=== PATIENT | male | born 1965 | race Two or more races ===

== ENCOUNTER 2018-06-27 13:06 | Emergency (ER) | payer SELFPAY ==
[~2018-06-27] VITALS: Ht 175.3 cm; Wt 69.0 kg
[2018-06-27 20:31] LABS: CLARITY URINE CLEAR (CLEAR); COLOR URINE ORANGE (YELLOW); KETONES URINE 1+ (NEGATIVE); LEUKOCYTE ESTERASE URINE TRACE (NEGATIVE); NITRITE URINE POSITIVE (NEGATIVE); OCCULT BLOOD URINE NEGATIVE (NEGATIVE); PROTEIN URINE 2+ (NEGATIVE)
[2018-06-27] MEDS ORDERED: AMOXICILLIN 500 MG CAPSULE PO ONE (20:45)
[2018-06-27 21:44] LABS: BASOPHILS % 0.1 % (0.0-2.0); CHLORIDE 99 mEq/L (98-107); HEMATOCRIT. 40.1 % (42.0-52.0); HEMOGLOBIN. 13.2 g/dL (14.0-18.0); LYMPHOCYTES % 7.2 % (20.0-50.0); MEAN CORPUSCULAR HEMOGLOBIN 31.5 pg (28.0-32.0); MEAN CORPUSCULAR VOLUME 95.5 fL (80.0-94.0); MEAN PLATELET VOLUME 10.9 fl (7.4-10.4); MONOCYTES % 9.9 % (2.0-8.0); NEUTROPHILS % 82.8 % (40.0-76.0); PLATELET 127 x1000/uL (130-400); RED BLOOD CELL COUNT 4.19 mill/uL (4.7-6.1); RED CELL DISTRIBUTION WIDTH 12.8 % (11.6-14.6)
[2018-06-27 22:49] VITALS: BP 142/78
== END 2018-06-27 22:55 | disposition home or self-care (01) ==
LOC: ER 13:06
DX: N30.00 Acute cystitis without hematuria (principal); M79.10 Myalgia, unspecified site; R50.9 Fever, unspecified; I10 Essential (primary) hypertension; Z98.890 Other specified postprocedural states
CPT/HCPCS: 36415; 71046; 99284